=== PATIENT | male | born 1950 | race Caucasian/White ===

== ENCOUNTER 2021-02-15 14:40 | Emergency (ER) | payer OTHER ==
[2021-02-15 16:00] VITALS: BP 114/72; PULSE 82; TEMP 97.8; BMI 25.8
== END 2021-02-15 16:30 | disposition left against medical advice (07) ==
LOC: JER 14:40
DX: F19.10 Other psychoactive substance abuse, uncomplicated (principal)
CPT/HCPCS: 99281-25